=== PATIENT | male | born 1955 | race Caucasian/White ===

== ENCOUNTER 2025-01-27 07:02 | Day surgery (SDC) | payer MEDICARE, BC ==
[2025-01-26 11:20] LABS: MEAN PLATELET VOLUME 8.3 FL (7.4-10.4); RED CELL DISTRIBUTION WIDTH 15.6 % (11.5-14.5)
[2025-01-26 11:28] LABS: CREATININE 0.96 MG/DL (0.60-1.10); TOTAL CARBON DIOXIDE 24.0 MMOL/L (24-32); eGFR 77 ML/MIN
[2025-01-26 11:30] LABS: INR 3.0 INR
[~2025-01-27] VITALS: Ht 180.3 cm; Wt 116.8 kg
[2025-01-27] MEDS ORDERED: FLEC100T PO (07:18)
[2025-01-27] MEDS ORDERED: WARF-55 PO (07:18)
[2025-01-27] MEDS ORDERED: WARF1TAB83 PO (07:18)
[2025-01-27] MEDS ORDERED: ATOR-2 PO (07:19)
[2025-01-27] MEDS ORDERED: SILD25TA10 PO (07:19)
[2025-01-27] MEDS ORDERED: METO-395 PO (07:19)
--- NOTE | 2025-01-27 07:23 | ELECTROCARDIOGRAPH REPORT ---
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 MILTON Aj Measurements Intervals [place] Rate: 69 P: 0 PA: 0 QRS: -68 QRSD: 184 T: -30 QT: 457 QTc: 490 Interpretive Statements Atrial fibrillation RBBB and LAFB Electronically Signed On 01-27-2025 17:26:[address] MILTON Aj Please click the below link to view image of tracing.
[2025-01-27 07:30] VITALS: BP 132/94; PULSE 60; RESP 10; RESP 14; TEMP 98.2; O2SAT 96; O2SAT 98
[2025-01-27] MEDS ORDERED: fentaNYL/PF 50MCG/1 ML 2ML syringe ONE (08:25)
[2025-01-27] MEDS ORDERED: midazolam 1 mg/ML 2ml injection ONE ×2 (08:25→09:26)
[2025-01-27] MEDS ORDERED: amiodarone 50MG/ML inj IV ONE (08:25)
[2025-01-27] MEDS ORDERED: atropine 0.1mg/ml 10ml syringe ONE (08:26)
[2025-01-27] MEDS ORDERED: MIDAZolam 1mg/ml 10ml vial IV ONE (09:30)
[2025-01-27] MEDS ORDERED: amiodarone 150mg/dext, iso-os 100 ML IV ONE (09:30)
[2025-01-27] MEDS ORDERED: morphine 10mg/ml inj. IV ONE (09:30)
[2025-01-27] MEDS ORDERED: atropine 0.1mg/ml 10ml syringe IV ONE (09:30)
[2025-01-27] MEDS ORDERED: normal saline 1000ml 1,000 ML IV SCH (09:30)
[2025-01-27 10:04] VITALS: BP 94/59; PULSE 50; RESP 17; O2SAT 92
--- NOTE | 2025-01-27 10:14 | CARDIOLOGY REPORT ---
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 He was seen recently in the office. After discussing risks, benefits, and alternative options, the patient undergoing electrocautery. Risks, benefits, alternative options discussed. Informed consent was obtained. DESCRIPTION OF PROCEDURE: Anterior and posterior patches were used from biphasic electrical energy 200 joules x 1 converted to normal sinus rhythm. The patient was bradycardic and was given 0.5 mg atropine, which improved his heart rate to 50s. IMPRESSION: A 70-year-old male with persistent atrial fibrillation, successfully cardioverted to normal sinus rhythm. RECOMMENDATIONS: Continue flecainide 100 mg p.o. b.i.d., metoprolol succinate 25 mg p.o. daily, hold it for heart rate less than 45 and continue. Keep INR therapeutic between 2-3. Recommended diet, weight loss and exercise program, adequate treatment of sleep apnea and weight loss. MILTON Cerrato MD TID: [id number] RECEIPT: [id number] SIRENA/JEREMIAH
[2025-01-27 10:15] VITALS: BP 86/61; PULSE 46; RESP 17; O2SAT 95
--- NOTE | 2025-01-27 10:16 | ELECTROCARDIOGRAPH REPORT ---
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 MILTON Aj Measurements Intervals [place] Rate: 47 P: 31 ND: 212 QRS: -28 QRSD: 182 T: -40 QT: 538 QTc: 476 Interpretive Statements Sinus bradycardia Right bundle branch block Electronically Signed On 01-27-2025 17:25:[address] MILTON Aj Please click the below link to view image of tracing.
[2025-01-27 10:30] VITALS: BP 84/56; PULSE 45; RESP 13; O2SAT 94
[2025-01-27 10:45] VITALS: BP 88/66; PULSE 45; RESP 12; O2SAT 93
[2025-01-27 11:00] VITALS: BP 96/72; PULSE 47; RESP 14; O2SAT 97
== END 2025-01-27 11:15 | disposition home or self-care (01) ==
LOC: SSTAY O 07:02
PROVIDERS: ATTEND Internal Medicine Cardiovascular Disease
DX: I48.91 Unspecified atrial fibrillation (principal); I10 Essential (primary) hypertension; E78.5 Hyperlipidemia, unspecified; Z79.01 Long term (current) use of anticoagulants; I45.10 Unspecified right bundle-branch block; Z79.899 Other long term (current) drug therapy
CPT/HCPCS: 36415; 80048; 85025; 85610; 92960; 93005; J0461; J2250; J3010; J7030; Z7610; 99152; J0282